=== PATIENT | female | born 1985 | race Two or more races ===

== ENCOUNTER 2016-07-01 07:26 | Outpatient (CLI) | payer OTHER | END 2016-07-01 07:27 | disposition home or self-care (01) | DX: Z36 Encounter for antenatal screening of mother (principal) ==

== ENCOUNTER 2016-07-04 10:40 | Outpatient (CLI) | payer OTHER | END 2016-07-04 10:41 | DX: R82.99 Other abnormal findings in urine (principal) ==

== ENCOUNTER 2016-07-25 10:50 | Outpatient (CLI) | payer OTHER | END 2016-07-25 10:51 | disposition home or self-care (01) | DX: Z36 Encounter for antenatal screening of mother (principal) ==

== ENCOUNTER 2016-08-21 09:58 | Outpatient (CLI) | payer OTHER | END 2016-08-21 09:59 | disposition home or self-care (01) | DX: Z36 Encounter for antenatal screening of mother (principal) ==

== ENCOUNTER 2016-09-19 07:50 | Outpatient (CLI) | payer OTHER | END 2016-09-19 07:51 | disposition home or self-care (01) | DX: Z36 Encounter for antenatal screening of mother (principal) ==

== ENCOUNTER 2016-10-24 11:19 | Outpatient (CLI) | payer OTHER | END 2016-10-24 11:20 | disposition home or self-care (01) | LOC: LAB.R 11:19 | PROVIDERS: ATTEND Obstetrics & Gynecology | DX: Z36 Encounter for antenatal screening of mother (principal) | CPT/HCPCS: 87081 ==

== ENCOUNTER 2016-11-13 10:01 | Outpatient (CLI) | payer OTHER ==
[2016-11-13 10:15] VITALS: BP 126/79
== END 2016-11-13 11:13 | disposition home or self-care (01) ==
LOC: WFO 10:01 → OB 10:02 → WFO 11:13
PROVIDERS: ATTEND Obstetrics & Gynecology
DX: O99.89 Other specified diseases and conditions complicating pregnancy, childbirth and the puerperium (principal); Z3A.38 38 weeks gestation of pregnancy
CPT/HCPCS: 99212

== ENCOUNTER 2016-11-23 10:16 | Outpatient (CLI) | payer OTHER ==
[2016-11-23 11:59] VITALS: BP 116/64
== END 2016-11-23 12:10 | disposition home or self-care (01) ==
LOC: WFO 10:16 → OB 10:17 → WFO 12:10
PROVIDERS: ATTEND Obstetrics & Gynecology
DX: O47.1 False labor at or after 37 completed weeks of gestation (principal); Z3A.40 40 weeks gestation of pregnancy
CPT/HCPCS: 99213

== ENCOUNTER 2016-11-24 04:17 | Inpatient (IN) | payer OTHER ==
[2016-11-24] MEDS ORDERED: SODIUM CHLORIDE FLUSH 0.9% 10 ML SYRINGE IVP PRN (08:28)
[2016-11-24 08:54] LABS: BASOPHILS % (AUTO) 0.5 %; EOSINOPHILS # (AUTO) 0.2 10^3/uL (0.0-0.7); EOSINOPHILS % (AUTO) 1.9 %; HCT - HEMATOCRIT 35.8 % (37.0-47.0); HGB - HEMOGLOBIN 11.8 g/dL (12.0-16.0); LYMPHOCYTES # (AUTO) 1.5 10^3/uL (1.5-3.5); LYMPHOCYTES % (AUTO) 18.2 %; MEAN CORPUSCULAR HEMOGLOBIN 24.8 pg (27.0-31.0); MEAN CORPUSCULAR HGB CONC 32.9 g/dL (32.0-36.0); MEAN CORPUSCULAR VOLUME 75.3 fL (81.0-99.0); MEAN PLATELET VOLUME 8.2 fL (7.9-10.8); MONOCYTES # (AUTO) 0.8 10^3/uL (0.0-1.0); NEUTROPHILS % (AUTO) 70.4 %; RED BLOOD COUNT 4.76 10^6/uL (4.20-5.40); RED CELL DISTRIBUTION WIDTH 19.7 % (12.0-15.0); UNCORRECTED WHITE BLOOD COUNT 8.5 x10^3/uL; WHITE BLOOD COUNT 8.5 x10^3/uL (4.8-10.8)
[2016-11-24] MEDS ORDERED: fentaNYL 100 MCG/2 ML VIAL IVP PRN ×2 (09:56→10:02)
[2016-11-24] MEDS ORDERED: OXYTOCIN/LACTATED RINGERS 250 ML IV SCH (10:00)
--- NOTE | 2016-11-24 10:12 | HISTORY & PHYSICAL EXAMINATION ---
Admit History - Instructions [place]/Slash: -Left hand click circles element as positive or present. -Right hand click slashes element as negative or not present. - : 2 Parity: 1 Premature: 0 Ectopic: 0 : 0 Care: positive: [facility] Risk/History: positive: Labor augmentation (Pt presented yesterday with a Cx which was close and long. sent home contractions have increased in freuency and streingth. Mahad SROM.) Complications This : positive: None Smoking Status: Never smoker - Mother's Labs Mother's Blood Type: positive: A Mother's RH: positive: Positive GBS: positive: Group B Step Negative Rubella Status: positive: Immune (Pt lives 30 min away from hospital. she is scheduled fro an induction friday.) Meds/Allgy - Allergies Allergies/Adverse Reactions: Allergies Allergy/AdvReac Type Severity Reaction Status Date / Time No Known Drug Allergies Allergy Verified 09/11/14 08:17 Physical - Abdominal Exam Vital Signs: Temp Pulse Resp BP Pulse Ox 36.8 C 73 16 123/60 97 11/24/16 07:35 11/24/16 07:35 11/24/16 07:35 11/24/16 07:35 11/24/16 07:35 : 10 min Contraction Intensity: positive: Moderate to strong Uterine Resting Tone: positive: Soft - Monitoring Heart Rate Baseline: 135 Strip Review: positive: Category I - Presentation Presentation: positive: Vertex - Vaginal Exam Membranes: positive: Membranes intact Dilation (in cm): 4 Effacement (%): 70 Station: positive: -1 Cervical Position: positive: Midposition - Speculum Exam Speculum Exam Performed: positive: No - Other Notes Labor Progress Note/Additional Text: Pt is a 31 yo EDC11/22/16 40 2/7 weeks. Lives 30 min away from hospital. History of short second stage. discussed increased of C/S with induction.
[2016-11-24] MEDS: LACTATED RINGERS 1,000 ML IV SCH ×2 (11:02→14:54)
[2016-11-24] MEDS ORDERED: fent/BUPIV 2 MCG/0.125% 250 ML EP ONE (13:09)
[2016-11-24] MEDS ORDERED: diphenhydrAMINE INJ 50 MG/ML VIAL IVP PRN ×2 (13:56→18:42)
[2016-11-24] MEDS ORDERED: METOCLOPRAMIDE 10 MG/2 ML VIAL IVP PRN (13:56)
[2016-11-24] MEDS ORDERED: LACTATED RINGERS 500 ML IV ONE (13:56)
[2016-11-24] MEDS ORDERED: ONDANSETRON 4 MG/2 ML VIAL IVP PRN (13:56)
[2016-11-24] MEDS ORDERED: fent/BUPIV 2 MCG/0.125% 250 ML EP PRN (13:56)
[2016-11-24] MEDS ORDERED: NALBUPHINE 20 MG/ML AMP IVP PRN (13:56)
[2016-11-24] MEDS ORDERED: NALOXONE 0.4 MG/ML VIAL IVP PRN (13:56)
[2016-11-24] MEDS ORDERED: SODIUM CHLORIDE FLUSH 0.9% 10 ML SYRINGE IVP SCH (14:00)
[2016-11-24] MEDS: ePHEDrine 50 MG/ML AMP IVP PRN ×3 (15:18→15:52)
--- NOTE | 2016-11-24 15:46 | PROVIDER PROGRESS NOTE ---
Labor Progress Note - Uterine Monitoring Uterine Monitoring Mode: positive: External toco : 3-3.5 min Contraction Intensity: positive: Moderate to strong Uterine Resting Tone: positive: Soft - Monitoring Monitor Mode: positive: External ultrasound Heart Rate Baseline: 145 Heart Rate Variability: positive: Minimal (0-5 bpm) Accelerations: positive: Absent Decelerations: positive: None Strip Review: positive: Category II (Pt developed left eye lid droop. Decreased wrinkeling of the left eye brow and corner of the mouth. She al;so si having difficulty with maintaing a blood pressure. Suspect high spinal. Stoped epidural, ephedrin 5 mg 4 doses. bolis IV fluids. Contacted Anasthesia. ) - Vaginal Exam Dilation (in cm): 5 Effacement (%): 90% Station: -1 Cervical Position: Midposition
--- NOTE | 2016-11-24 15:53 | CONSULTATION NOTE ---
Referring Provider Consult Date: 11/24/16 (followup for left eye droop ) Chief Complaint - Chief Complaint Chief Complaint: left eye droop, left face decreased sensory and left side of mouth droop History of Present Illness - Admitted From Admitted From:: home - History Obtained From Records Reviewed: yes History obtained from: patient Exam Limitations: patient is in labor at 5 centimeters - History of Present Illness Pain/Problem Location Description: left side of face with loss of some sensation to left cheek Severity: moderate to severe Quality: no pain Timing: onset after receiving an epidural during labor Duration: ongoing Improved with: nothing Worsened by: nothing Associated Symptoms: received an epidural and started to have symptoms HPI Comment/Other: Patient is a 31 year old obese young woman who is in her 40th week . She came to the hospital to deliver her second child. During the course of labor, she received an epidural local. A short time after started to become hypotensive, exhibited left eye drooping, loss of sensation to her left cheek and left corner of the mouth drooping. Patient has no history of neurological or autoimmune disorders. She had her first child approximately 2 years ago. She has had no adverse medical problems during this . She has no pain to the left side of her face. She does have some tingling to the left arm that could be due to the blood pressure cuff. When the cuff is deflated the tingling lessens. She has no nausea or vomiting. She has no chest pain or shortness of breath. Her labor is progressing uneventfully other than these symptoms. Consultation was requested by OB for evaluation of possible [place] Palsy or other neurological illness not related to the . Review of Systems - Constitutional Constitutional: denies: Fatigue, Fever, Chills, Malaise - Eyes Eyes: denies: Pain, Irritation, Blurred vision, Spots in vision, Field loss - Ears, Nose & Throat Ears, Nose & Throat: denies: Ear pain, Hearing loss, Hearing aids - Cardiovascular Cariovascular: denies: Irregular heart rate, Chest pain, Lightheadedness - Respiratory Respiratory: denies: Cough - Musculoskeletal Musculoskeletal: denies: Muscle pain, Limited range of motion, Muscle weakness - Integumentary Integumentary: denies: Rash, Lesions - Neurological Neurological: denies: General weakness, Headache, Memory problems, Seizures, Slurred speech - Psychiatric Psychiatric: denies: Depression, Anxiety - Endocrine Endocrine: denies: Polyuria, Intolerance to heat - Hematologic/Lymphatic Hematologic/Lymphatic: denies: Anemia - All Other Systems All Other Systems: reports: Reviewed and negative History - Past Medical History Cardiovascular: reports: None Respiratory: reports: None Neuro: reports: None Endocrine/Autoimmune: reports: None GI: reports: None KAIAWHINA KOHANGA REO: reports: None : reports: None HEENT: reports: None Psych: reports: None Musculoskeletal: reports: None Derm: reports: None MRSA Hx?: No - Family & Social History Family History: Mother: Cancer, Father: Alive and Well Living arrangement: At home Living Situation: With spouse/s.o. - Substance History Use: Uses substance without health or social issues: NONE Abuse: Recurrent use of substance despite neg consequences: NONE Dependence: Experiences withdrawal or developed tolerances: NONE - POLST Patient has POLST: No POLST Status: Full Code Meds/Allgy - Allergies Allergies/Adverse Reactions: Allergies Allergy/AdvReac Type Severity Reaction Status Date / Time No Known Drug Allergies Allergy Verified 09/11/14 08:17 Exam - Vital Signs Reviewed Vital Signs: Yes - Physical Exam General Appearance: positive: No acute distress, Alert Eyes Bilateral: positive: PERRL, Other (left eye droop) ENT: positive: Pharynx nml, Other (left side of mouth droop) Neck: positive: Thyroid nml, No JVD, Trachea midline Respiratory: positive: No respiratory distress, Breath sounds nml Cardiovascular: positive: Regular rate & rhythm, No murmur, No gallop Peripheral Pulses: positive: 2+ Abdomen: positive: Other () Back: positive: Nml inspection Skin: positive: Color nml, No rash, Warm, Dry Extremities: positive: Full ROM Neurologic/Psychiatric: positive: Oriented x3, Motor nml, Sensation nml (normal to both right and left cheek), Mood/affect nml, Other (left eye droop and left side of mouth droop) Conclusion/Plan - Diagnosis Diagnosis: 1. Acute left eye/left side of mouth droop after epidural possible [place] Palsy. 2. morbid obesity with BMI>40. 3. 40+weeks with imminent delivery - Plan Plan: 1. continue to monitor for neurological changes in the eye and face after delivery. These symptoms may resolve after removal of the epidural during delivery. Steroids maybe needed if patient remains asymptomatic. 2. lab tests such as an ESR , RANDI and CRP might be beneficial to rule out underlying autoimmune disease. 3. would recommend patient to breast feed if possible if symptoms are related to the hormonal changes in and this will lessen the rapid change in hormones after delivery. - Lab Results Lab results reviewed: Yes Fish Bones: 11/24/16 08:40 - EKG Results EKG Interpreted Independently: No
--- NOTE | 2016-11-24 16:04 | PROVIDER PROGRESS NOTE ---
Labor Progress Note - Uterine Monitoring Uterine Monitoring Mode: positive: External toco Contraction Frequency (min/apart): 3-4 min Contraction Intensity: positive: Moderate to strong Uterine Resting Tone: positive: Soft - Monitoring Monitor Mode: positive: External ultrasound Heart Rate Baseline: 145 Heart Rate Variability: positive: Moderate (6-25 bmp) Accelerations: positive: Present, 15x15 Decelerations: positive: None Strip Review: positive: Category I - Vaginal Exam Dilation (in cm): 6 Effacement (%): 100 Station: 0 Cervical Position: Midposition - Labor Progress Note Labor Progress Note/Additional Text: Not numness to nipple line. B/P 141/90. Pit off, Epidural off, Still bolis.
[2016-11-24] MEDS ORDERED: LIDOCAINE 1% 50 ML MDV ONE (16:48)
[2016-11-24] MEDS ORDERED: miSOPROStol 200 MCG TABLET ONE (16:49)
[2016-11-24] MEDS ORDERED: LACTATED RINGERS 1,000 ML IV SCH ×2 (16:51→19:00)
[2016-11-24] MEDS ORDERED: WITCH HAZEL/GLYCERIN 1 EACH MED..PAD TOP PRN (18:42)
[2016-11-24] MEDS ORDERED: OXYTOCIN/LACTATED RINGERS 250 ML IV ONE (18:42)
[2016-11-24] MEDS ORDERED: HYDROCORTISONE 1% CREAM 28 GM TUBE PR PRN (18:42)
--- NOTE | 2016-11-24 18:50 | DELIVERY NOTE ---
Delivery Note - Labor Labor: positive: Spontaneous, Augmented by ARM, Augmented by oxytocin - Infant Delivery Method Infant Delivery Method: positive: Spontaneous vaginal delivery - Presentation Presentation: positive: Vertex, JOÃO - right occiput anterior - Nuchal Cord Nuchal Cord: positive: None - Anesthetic Anesthetic Type: - Amniotic Fluid Description Amniotic Fluid Description: positive: Light meconium - Episiotomy Type Episiotomy Type: positive: None - Laceration Laceration: positive: 1st degree, Perineal - Suture Suture Type: positive: Vicryl Suture Size: positive: 3-0 - Delivery Outcome Delivery Outcome: positive: Livebirth (Live male Apgars 9/9) - [place] : positive: Placed in direct skin contact with mother, Suctioned, Stimulated sex: positive: Male - Cord Cord: positive: 3 vessels - Estimated Blood Loss Estimated Blood Loss (in cc): 250 - Post Delivery Events Post Delivery Events: positive: Other (Following epidural placement pt developed drooping of her left eyelid. Resolved following delivery)
[2016-11-24] MEDS: ACETAMINOPHEN 500 MG TABLET PO SCH (21:48)
[2016-11-24] MEDS: IBUPROFEN 800 MG TABLET PO SCH (21:49)
[2016-11-25] MEDS: HYDROCORTISONE/PRAMOXINE 10 GM PR PRN ×2 (02:20→09:01)
[2016-11-25] MEDS: oxyCODONE 5 MG TABLET PO PRN ×4 (02:20→16:35)
[2016-11-25] MEDS: IBUPROFEN 800 MG TABLET PO SCH ×3 (03:51→16:35)
[2016-11-25 05:52] LABS: BASOPHILS % (AUTO) 0.2 %; EOSINOPHILS # (AUTO) 0.2 10^3/uL (0.0-0.7); EOSINOPHILS % (AUTO) 1.5 %; HCT - HEMATOCRIT 30.9 % (37.0-47.0); HGB - HEMOGLOBIN 10.1 g/dL (12.0-16.0); LYMPHOCYTES # (AUTO) 1.7 10^3/uL (1.5-3.5); LYMPHOCYTES % (AUTO) 15.3 %; MEAN CORPUSCULAR HEMOGLOBIN 24.7 pg (27.0-31.0); MEAN CORPUSCULAR HGB CONC 32.6 g/dL (32.0-36.0); MEAN CORPUSCULAR VOLUME 75.9 fL (81.0-99.0); MEAN PLATELET VOLUME 8.3 fL (7.9-10.8); MONOCYTES % (AUTO) 8.3 %; NEUTROPHILS # (AUTO) 8.6 10^3/uL (1.5-6.6); NEUTROPHILS % (AUTO) 74.7 %; RED BLOOD COUNT 4.07 10^6/uL (4.20-5.40); RED CELL DISTRIBUTION WIDTH 20.2 % (12.0-15.0); UNCORRECTED WHITE BLOOD COUNT 11.5 x10^3/uL; WHITE BLOOD COUNT 11.5 x10^3/uL (4.8-10.8)
[2016-11-25] MEDS: ACETAMINOPHEN 500 MG TABLET PO SCH ×2 (06:05→14:48)
--- NOTE | 2016-11-25 07:42 | PROVIDER PROGRESS NOTE ---
Subjective - Prog Note Date Prog Note Date: 11/25/16 Prog Note Time: 07:42 - Subjective Pt reports feeling: Improved Subjective: Dr VEGA reported that the patient symptoms have resolved and the symptoms were probably from the epidural and not another process. Patient to still be followed per request of Dr Vega if needed. Current Medications - Current Medications Current Medications: Current Medications Generic Name Dose Route Start Last Admin Trade Name Freq PRN Reason Stop Dose Admin Acetaminophen 1,000 mg 11/24/16 19:00 11/25/16 14:48 Tylenol PO 1,000 mg Q8H MAREK Administration Diphenhydramine HCl 25 mg 11/24/16 18:42 11/24/16 23:18 Benadryl Inj IVP 25 mg Q6H PRN Administration ITCHING Ephedrine Sulfate 5 mg 11/24/16 13:56 11/24/16 15:52 Ephedrine IVP 5 mg Q5M PRN Administration For SBP<100;give until SBP>100 Fentanyl 25 - 50 mcg 11/24/16 10:02 11/24/16 12:22 Fentanyl IVP 50 mcg Q2HR PRN Administration PAIN Hydrocortisone/Pramoxine 1 spray 11/24/16 18:42 11/25/16 09:[address] 20 spray QID PRN Administration Hemorrhoids Oxytocin/Lactated Ringer's 250 mls @ 1 mls/hr 11/24/16 10:00 11/24/16 15:00 Pitocin/Lactated Ringers IV 0 milliunit/min TITR MAREK Titration Protocol 1 MILLIUNIT/MIN Lactated Ringer's 1,000 mls @ 100 mls/hr 11/24/16 19:00 11/24/16 20:22 Lr IV 100 mls/hr .Q10H MAREK Administration Ibuprofen 800 mg 11/24/16 19:00 11/25/16 10:28 Motrin PO 800 mg Q6H MAREK Administration Oxycodone HCl 5 mg 11/24/16 18:42 11/25/16 10:32 Roxicodone PO 5 mg Q4HR PRN Administration Severe Pain Simethicone 80 mg 11/24/16 22:00 11/25/16 09:00 Mylicon PO 80 mg TID MAREK Administration Sodium Chloride 10 ml 11/24/16 08:28 11/25/16 06:13 Normal Saline Flush 0.9% IVP 10 ml PRN PRN Administration NEEDED PER PROVIDER ORDERS Sodium Chloride 10 ml 11/24/16 14:00 11/24/16 20:49 Normal Saline Flush 0.9% IVP 10 ml Q8HR MAREK Administration Witch Eugenie/Glycerin 1 each 11/24/16 18:42 11/25/16 02:20 Tucks TOP 1 each QID PRN Administration Hemorrhoids Objective - Vital Signs/Intake & Output Reviewed Vital Signs: Yes Vital Signs: Vital Signs x48h Temp Pulse Resp BP Pulse Ox 11/25/16 03:35 37.0 C 79 18 98/55 L 98 11/24/16 23:45 37.1 C 91 20 119/49 L 97 Intake & Output: Intake & Output 11/22/16 11/23/16 11/24/16 11/25/16 23:59 23:59 23:59 23:59 Intake Total 3864 Output Total 800 450 Balance -800 3414 - Objective General Appearance: positive: No acute distress, Alert Eyes Bilateral: positive: PERRL ENT: positive: ENT inspection nml, Pharynx nml Neck: positive: Nml inspection, Thyroid nml Respiratory: positive: No respiratory distress, Breath sounds nml Cardiovascular: positive: Regular rate & rhythm, No murmur, No gallop Skin: positive: No rash, Warm, Dry Extremities: positive: Full ROM, Nml appearance Neurologic/Psychiatric: positive: Oriented x3, CN's nml (2-12), Motor nml, Sensation nml, Mood/affect nml. negative: Weakness, Facial droop, Slurred/ abnml speech - Lab Results Fish Bones: 11/25/16 05:31 Other Labs: Lab Results x24hrs 11/25/16 11/24/16 Range/Units 05:31 08:40 WBC 11.5 H 8.5 (4.8-10.8) x10^3/uL RBC 4.07 L 4.76 (4.20-5.40) 10^6/uL Hgb 10.1 L 11.8 L (12.0-16.0) g/dL Hct 30.9 L 35.8 L (37.0-47.0) % MCV 75.9 L 75.3 L (81.0-99.0) fL MCH 24.7 L 24.8 L (27.0-31.0) pg MCHC 32.6 32.9 (32.0-36.0) g/dL RDW 20.2 H 19.7 H (12.0-15.0) % Plt Count 181 208 (130-450) 10^3/uL MPV 8.3 8.2 (7.9-10.8) fL Neut # 8.6 H 6.0 (1.5-6.6) 10^3/uL Lymph # 1.7 1.5 (1.5-3.5) 10^3/uL [place] # 1.0 0.8 (0.0-1.0) 10^3/uL Eos # 0.2 0.2 (0.0-0.7) 10^3/uL Baso # 0.0 0.0 (0.0-0.1) 10^3/uL Absolute Nucleated RBC 0.00 0.00 x10^3/uL Nucleated RBCs 0.0 0.0 /100WBC Assessment/Plan - Problem List (1) Other complications of spinal and epidural anesthesia during labor and delivery Impression: patient symptoms resolved once the epidural was stopped and blood pressure improved. patient has no residual to left eye droop or left side cheek with sensory loss. patient back to baseline Thank you for the referral and we will be happy to see patient again should the need arise. Time spent with patient was 40 minutes
[2016-11-25] MEDS: SIMETHICONE CHEW 80 MG TABLET PO SCH ×2 (09:00→15:41)
[2016-11-25 16:38] VITALS: BP 113/64
--- NOTE | 2016-11-25 17:40 | Discharge Plan ---
Discharge Plan Disposition: 01 Home, Self Care Condition: Good Diet: Regular Activity Restrictions: No Restrictions (pelvic rest 6 weeks) Shower Restrictions: No Driving Restrictions: No Weight Bearing: Full Weight No Smoking: If you smoke, Please STOP! Call for help. Follow-up with: Pierce Vega MD [Provider Admit Priv/Credential] -
--- NOTE | 2016-11-25 18:22 | Labor Flowsheet ---
Labor Flowsheet Datetime Report Generated by CPN: 11/25/2016 18:21 Datetime: 11/25/2016 16:35 VITAL SIGNS NBP Sys/Susy/Mean (mmHg): 113 : 64 : 76 Pulse: 75 LaborFlag: Labor Datetime: 11/25/2016 03:34 SpO2 (%): 98 Datetime: 11/24/2016 18:55 Epidural Procedure Other: Cath Removed; Cath Intact Datetime: 11/24/2016 18:20 UTERINE ACTIVITY Monitor Mode: External Frequency (min): q2-3 min Quality: Strong Duration (sec): 60 Pattern: Normal: <= 5 Contractions in 10 Minutes Resting Tone (Palpate): Relaxed ASSESSMENT A Monitor Mode: External US FHR Baseline Rate : unable to determine baseline Variability: Moderate 6-25 bpm Decelerations: Variable Actions for Decelerations: Provider at bedside. PT pushing. Vigourous male born at 1820. Category: Category II Datetime: 11/24/2016 18:12 VAGINAL EXAM Dilatation (cm): 10.0 Effacement (%): 100 Station: 2 Exam by: Dr. Vega Communication Comments: Pt begins pushing Datetime: 11/24/2016 18:00 Respirations: 18 Accelerations: 10X10 Comments: Dr. Vega at bedside Datetime: 11/24/2016 17:43 Monitor Interventions for UA: [place] Adjusted Datetime: 11/24/2016 17:28 Medication Comments: COUNTER CLERK [place] turned epidural back on to 8 Datetime: 11/24/2016 16:30 PATIENT CARE I/O Interventions: [place]o Cath Inserted Datetime: 11/24/2016 16:20 Temperature (C): 36.9 Temperature Route: Oral Datetime: 11/24/2016 15:52 Magnesium/Antihypertensives: Ephedrine IV (mg) @ (Annotations: 5mg) Datetime: 11/24/2016 15:30 COMMUNICATION Communication: Provider at Bedside Datetime: 11/24/2016 15:00 MEDICATIONS Pitocin (milliunits): Discontinued Datetime: 11/24/2016 14:30 Membrane Status: Ruptured Membranes Ruptured Date/Time: 11/24/2016 14:30 Membranes Rupture Method: Artificial Amniotic Fluid Color: Light Meconium Amniotic Fluid Amount: Small Amniotic Fluid Odor: Normal Vaginal Bleeding: None Cervix, Consistency: Soft Cervix, Position: Midposition Presentation 'A': Cephalic Datetime: 11/24/2016 13:40 Epidural Procedure: Completed Datetime: 11/24/2016 13:22 ANESTHESIA Anesthesia Plans: Epidural Anesthesia Interview: E Epidural Positioning: Sitting Datetime: 11/24/2016 12:28 Analgesics/Sedatives: Fentanyl (mcg) @ (Annotations: 50 mcg) Datetime: 11/24/2016 11:30 Pitocin Checklist: At Least 1 Acceleration of 15 bpm x 15 Seconds in 30 Minutes or Adequate Variabi lity; No More than 1 Late Deceleration Occurred in Past 30 Minutes; No More than 2 Variable Decelerat ions > 60 Seconds in Duration and decreasing >60 bpm in 30 minutes; No More than 5 Uterine Contractio ns in 10 Minutes for any 20 Minute Interval; Uterus Palpates Soft between Contractions Datetime: 11/24/2016 11:27 Patient Care Comments: 150 mls Datetime: 11/24/2016 10:00 FHR Baseline Changes: No Baseline Change Datetime: 11/24/2016 09:43 Stage of : Labor
== END 2016-11-25 18:20 | disposition home or self-care (01) | DRG 774 ==
LOC: OB 04:17 → WFO 04:17 → OB 08:20
PROVIDERS: ADMIT Obstetrics & Gynecology; ATTEND Obstetrics & Gynecology
PROC: 10E0XZZ Delivery of Products of Conception, External Approach (ICD-10-PCS; principal; 2016-11-24)
PROC: 0HQ9XZZ Repair Perineum Skin, External Approach (ICD-10-PCS; 2016-11-24)
PROC: 10907ZC Drainage of Amniotic Fluid, Therapeutic from Products of Conception, Via Natural or Artificial Opening (ICD-10-PCS; 2016-11-24)
DX: O70.0 First degree perineal laceration during delivery (principal); O74.8 Other complications of anesthesia during labor and delivery; Z68.41 Body mass index [BMI] 40.0-44.9, adult; O77.0 Labor and delivery complicated by meconium in amniotic fluid; I95.2 Hypotension due to drugs; R29.810 Facial weakness; O99.214 Obesity complicating childbirth; Z3A.40 40 weeks gestation of pregnancy; Z37.0 Single live birth
CPT/HCPCS: 36415; 85025; 87491; 87591; 99213

== ENCOUNTER 2016-11-27 07:41 | Observation (INO) | payer OTHER ==
[2016-11-27] MEDS ORDERED: SODIUM CHLORIDE 0.9% 1,000 ML IV ONE (08:42)
[2016-11-27] MEDS ORDERED: oxyCOD/ACETAMIN 5 MG/325 MG TABLET PO STA (08:42)
--- NOTE | 2016-11-27 09:01 | ED Physician Documentation ---
History of Present Illness - Stated complaint Stated Complaint: BACK PAIN - Chief complaint Chief Complaint: Back Pain - Additonal information Additional information: hx from pt 31 f 3 days PP with an epidural was OK until dc yesterday then developed severe back pain near site of epidural, some numbness to the right inguinal region, diff moving her legs [place] hip flexion though diff to stermine if this is 2/2 pain or true weakness and a few episodes of urinary incont also have severe upper abd cramps and pelvic cramping no fever no NVD no urinary sx breast feeing called L&D and sent to the ED for wup HTN on arrival - states no pre-eclampsia prior to delivery Review of Systems Constitutional: denies: Fever, Chills Cardiac: denies: Chest pain / pressure Respiratory: denies: Dyspnea GI: reports: Abdominal Pain. denies: Nausea, Vomiting, Diarrhea : reports: Vaginal bleeding (PP). denies: Dysuria, Now EGA Endocrine: denies: Easy bruising / bleeding Immunocompromised: denies: Immunocompromised PD PAST MEDICAL HISTORY - Past Medical History Past Medical History: No Cardiovascular: None Respiratory: None Neuro: None Endocrine/Autoimmune: None GI: None HARNESS INSPECTOR: None : None HEENT: None Psych: None Musculoskeletal: None Derm: None - Past Surgical History Past Surgical History: No - Present Medications Home Medications: Ambulatory Orders Medication Instructions Recorded Confirmed Ibuprofen [Ibuprofen] 800 mg PO TID 11/27/16 11/27/16 oxyCODONE/ACET 5/325 Prepack 4 1 tab PO Q4H PRN 11/27/16 11/27/16 [PERCOCET 5 MG/325 MG Prepack 4] - Allergies Allergies/Adverse Reactions: Allergies Allergy/AdvReac Type Severity Reaction Status Date / Time No Known Drug Allergies Allergy Verified 09/11/14 08:17 - Social History Does the pt smoke?: No Smoking Status: Never smoker - POLST Patient has POLST: No POLST Status: Full Code PD ED PE NORMAL - Vitals Vital signs reviewed: Yes (HTN) - General General: Alert and oriented X 3 - Neck Neck: Supple, no meningeal sign - Cardiac Cardiac: RRR - Respiratory Respiratory: No respiratory distress, Clear bilaterally - Abdomen Abdomen: Soft, Other (TTP upper abd > lower, more TTP RUQ but neg murphys, mild PP distension) - Back Back: No CVA TTP, Other (2 puncture sites to upper lumbar region s erythema or swelling or wramth, very TTP) - Derm Derm: Normal color - Neuro Neuro: Other (dec sensation to R inguinal region, no labia buttock numbness, nl sensation to legs, dec hip flexion jina but partly due to pain, knee ext foot dorsi plantar great toe ext all 5/5, no clonus, neg SLR) Results - Vitals Vitals: Vital Signs - 24 hr 11/27/16 11/27/16 11/27/16 07:45 10:15 10:30 Temperature 36.9 C 36.8 C Heart Rate 90 81 Respiratory 21 18 Rate Blood Pressure 147/80 H 116/58 L O2 Saturation 97 95 11/27/16 11/27/16 13:17 14:42 Temperature Heart Rate 76 75 Respiratory 18 12 Rate Blood Pressure 131/56 H 120/64 O2 Saturation 96 96 Oxygen O2 Source Room air - Labs Labs: Laboratory Tests 11/27/16 11/27/16 11/27/16 10:20 10:20 10:29 WBC 8.2 RBC 4.25 Hgb 10.6 L Hct 31.9 L MCV 75.0 L MCH 24.9 L MCHC 33.2 RDW 19.9 H Plt Count 206 MPV 7.9 Neut # 6.0 Lymph # 1.4 L [place] # 0.6 Eos # 0.1 Baso # 0.0 Absolute Nucleated RBC 0.00 Nucleated RBCs 0.0 Sodium 138 Potassium 3.5 Chloride 105 Carbon Dioxide 24 Anion Gap 9.0 BUN 6 Creatinine 0.4 Estimated GFR (MDRD) 185 Glucose 88 Calcium 8.3 L Total Bilirubin 0.4 AST 40 ALT 28 Alkaline Phosphatase 108 Total Protein 5.8 L Albumin 2.3 L Globulin 3.5 Albumin/Globulin Ratio 0.7 L Lipase 16 L Urine Color RED/BLOODY Urine Clarity BLOODY Urine pH 8.0 H Ur Specific [place] 1.015 Urine Protein 30 H Urine Glucose (UA) NEGATIVE Urine Ketones NEGATIVE Urine Occult Blood LARGE H Urine Nitrite NEGATIVE Urine Bilirubin NEGATIVE Urine Urobilinogen 0.2 (NORMAL) Ur Leukocyte Esterase TRACE H Urine RBC TNTC H Urine WBC 6-10 H Ur Squamous Epith Cells MOD Squamous H Urine Bacteria Many H Ur Microscopic Review INDICATED Urine Culture Comments NOT INDICATED 11/27/16 13:56 WBC RBC Hgb Hct MCV MCH MCHC RDW Plt Count MPV Neut # Lymph # [place] # Eos # Baso # Absolute Nucleated RBC Nucleated RBCs Sodium Potassium Chloride Carbon Dioxide Anion Gap BUN Creatinine Estimated GFR (MDRD) Glucose Calcium Total Bilirubin AST ALT Alkaline Phosphatase Total Protein Albumin Globulin Albumin/Globulin Ratio Lipase Urine Color YELLOW Urine Clarity HAZY Urine pH 6.5 Ur Specific [place] 1.015 Urine Protein NEGATIVE Urine Glucose (UA) NEGATIVE Urine Ketones NEGATIVE Urine Occult Blood LARGE H Urine Nitrite NEGATIVE Urine Bilirubin NEGATIVE Urine Urobilinogen 0.2 (NORMAL) Ur Leukocyte Esterase TRACE H Urine RBC TNTC H Urine WBC 0-3 Ur Squamous Epith Cells MOD Squamous H Urine Bacteria Moderate H Ur Microscopic Review INDICATED Urine Culture Comments NOT INDICATED - Rads (name of study) abd sono Radiology: See rad report (mild hepatomegalt with parenchymal pattern c/w benign fatty infiltration, nl GB, borderline spleen size) pelvic sono Radiology: See rad report (enlarged uterus c/w pp states, no retained products visualized, R ovary non vis, L ovary nl) PD MEDICAL DECISION MAKING - ED course ED course: BP improved when pain controlled, mild proteinurea but not a clean catch and + WBC RBC epi and bacteria - doubt pre-eclampsia LFTs WBC and RUQ sono neg - doubt biliary dz pelvic sono neg for retained POC UA so contaminated cannot determine if pt has a UTI - will recheck - still many epis now no WBC doubt UTI needs MRI to eval for epidural abscess or hematoma given severe pain, R inguinal numbness, jina hip flexion weakness and several episodes of urinary incont - unfortunately [facility] cannot provide this service for pt today as MRI is fully booked all day - options are CT with contrast which is a large amt of radiation and contrast would preclude breast feeding for a few days and is not as accurate a study, transfer to another facility for imaging ([facility]), or wait for tomorrow d/w pt anesthesia and OB and plan is to keep pt at [facility] for serial neuro checks until MRI can be performed Departure - Departure Disposition: ED Place in Observation Clinical Impression: Other complications of spinal and epidural anesthesia during labor and delivery Condition: Good Discharge Date/Time: 11/27/16 16:00
[2016-11-27] MEDS ORDERED: oxyCOD/ACETAMIN 5 MG/325 MG TABLET PO ONE (10:10)
[2016-11-27 10:27] LABS: BASOPHILS % (AUTO) 0.4 %; EOSINOPHILS # (AUTO) 0.1 10^3/uL (0.0-0.7); EOSINOPHILS % (AUTO) 1.3 %; HCT - HEMATOCRIT 31.9 % (37.0-47.0); HGB - HEMOGLOBIN 10.6 g/dL (12.0-16.0); LYMPHOCYTES # (AUTO) 1.4 10^3/uL (1.5-3.5); MEAN CORPUSCULAR HEMOGLOBIN 24.9 pg (27.0-31.0); MEAN CORPUSCULAR HGB CONC 33.2 g/dL (32.0-36.0); MEAN PLATELET VOLUME 7.9 fL (7.9-10.8); MONOCYTES # (AUTO) 0.6 10^3/uL (0.0-1.0); MONOCYTES % (AUTO) 7.6 %; NEUTROPHILS % (AUTO) 73.7 %; RED BLOOD COUNT 4.25 10^6/uL (4.20-5.40); RED CELL DISTRIBUTION WIDTH 19.9 % (12.0-15.0); UNCORRECTED WHITE BLOOD COUNT 8.2 x10^3/uL; WHITE BLOOD COUNT 8.2 x10^3/uL (4.8-10.8)
[2016-11-27 10:38] LABS: BILIRUBIN,URINE NEGATIVE (NEGATIVE)
[2016-11-27 10:40] LABS: ALBUMIN/GLOBULIN RATIO 0.7 (1.0-2.2); BILIRUBIN,TOTAL 0.4 mg/dL (0.2-1.0); CALCIUM 8.3 mg/dL (8.5-10.3); CREATININE 0.4 mg/dL (0.4-1.0); POTASSIUM 3.5 mmol/L (3.5-5.0); TOTAL PROTEIN 5.8 g/dL (6.7-8.2)
[2016-11-27 10:55] LABS: UA w/ MICROSCOPIC CHARGE YES; UR CULTURE IF IND NOT INDICATED
--- NOTE | 2016-11-27 11:53 | Ultrasound Report ---
ABDOMINAL ULTRASOUND:: 11/27/2016 CLINICAL HISTORY: A 31-year-old female who is times 3 days and right upper quadrant pain. TECHNIQUE: Real-time scanning was performed with automotive leasing sales representative static images obtained. FINDINGS: The liver is mildly enlarged with a parenchymal pattern suggestive of benign fatty infiltr ation. The liver length measures 23.5 cm. Normal hepatopetal flow is seen in the portal vein. The gallbladder is mildly distended without wall thickening or calculi. This distention most likely i s a normal variation related to a relative n.p.o. status. The wall thickness measures 2 mm. This jasmeet urement is normal. The common bile duct has a normal diameter of 3.6 mm. The pancreas shows no significant abnormality. The pancreatic tail is not optimally visualized. The kidneys demonstrate the right kidney to measure 13.1 cm. The left kidney measures 12 cm. No pyelo caliceal system distention or masses are seen. The spleen is borderline in size with a length of 13.4 cm. The abdominal aorta shows no evidence of aneurysm and has a maximum diameter of 2.1 cm. The inferior vena cava is seen in its subhepatic portion. IMPRESSION: 1. THE LIVER APPEARS MILDLY ENLARGED WITH A PARENCHYMAL PATTERN SUGGESTIVE OF BENIGN FATTY INFILTRATI ON OF THE LIVER. 2. BORDERLINE SIZE OF THE SPLEEN IS NOTED WITH A NORMAL PARENCHYMAL PATTERN. JOB #: [id number] EXT JOB #:[id number]
--- NOTE | 2016-11-27 12:00 | Ultrasound Report ---
PELVIC ULTRASOUND NON OB: 11/27/2016 CLINICAL HISTORY: Only a transabdominal scan was done. The patient is times 3 days and has pelvic pain. TECHNIQUE: Transabdominal pelvic ultrasound performed for global evaluation. Real-time scanning perfo rmed and static images obtained. FINDINGS: The uterus is enlarged, most likely a result of its state. It measures 20.7 cm by 11.9 cm by 12.2 cm for a volume of 1571.7 cubic centimeters. Central endometrial complex shows no significant abnormality. Central endometrial complex measures 1 cm. There is no obvious sign of retai sindhu products of conception on this transabdominal scan. No enhanced vascularity on the color flow rachael ges is seen in the endometrial echo complex. If retained products of conception is of strong clinical concern, then a transvaginal scan could be obtained. Transvaginal scan is more accurate than transab dominal scan for evaluation of retained products of conception. The right ovary is not seen. The left ovary measures 2.6 cm by 1.8 cm 1.9 cm for a volume of 4.7 cubi c centimeters. The left ovary shows normal vascular flow. IMPRESSION: 1. ENLARGED UTERUS IS NOTED RELATED TO PATIENT'S STATE. 2. CENTRAL ENDOMETRIAL COMPLEX SHOWS NO SIGNIFICANT ABNORMALITY ON TRANSABDOMINAL SCAN. IF THERE IS A STRONG CLINICAL CONCERN IN REGARDS TO RETAINED PRODUCTS OF CONCEPTION, THEN TRANSVAGINAL EXAMINATION IS RECOMMENDED. 3. THE RIGHT OVARY WAS NOT SEEN. 4. THE LEFT OVARY IS NORMAL. JOB #: [id number] EXT JOB #:[id number]
[2016-11-27 14:04] LABS: BILIRUBIN,URINE NEGATIVE (NEGATIVE); PH,URINE 6.5 PH (5.0-7.5)
[2016-11-27 14:05] LABS: UA w/ MICROSCOPIC CHARGE YES
[2016-11-27 14:29] LABS: UR CULTURE IF IND NOT INDICATED; WBC,URINE 0-3 /HPF (0-5)
[2016-11-27] MEDS ORDERED: ACETAMINOPHEN 1,000 MG/100 ML 100 ML IV STA (14:43)
[2016-11-27] MEDS ORDERED: ACETAMINOPHEN 1,000 MG/100 ML 100 ML IV ONE (15:07)
[2016-11-27] MEDS ORDERED: ACETAMINOPHEN 325 MG TABLET PO PRN (15:12)
[2016-11-27] MEDS ORDERED: SODIUM CHLORIDE FLUSH 0.9% 10 ML SYRINGE IVP PRN (15:12)
[2016-11-27] MEDS ORDERED: LACTATED RINGERS 1,000 ML IV SCH (16:00)
[2016-11-27] MEDS: HYDROcod/ACETAM 5/325 MG TABLET PO PRN ×2 (16:56→21:10)
--- NOTE | 2016-11-27 18:13 | MRI Report ---
EXAM: MRI LUMBAR SPINE WITHOUT CONTRAST EXAM DATE: 11/27/2016 05:56 PM. CLINICAL HISTORY: Post post epidural back pain. COMPARISON: None. TECHNIQUE: Multiplanar, multisequence T1-weighted and fluid-sensitive sequences of the lumbar spine f rom T12 to S1 without contrast. Other: None. FINDINGS: Spinal Cord: The conus terminates at mid-L1. No signal abnormality in the visualized spinal cord. The re is slight thickening of the left ligamentum flavum at L4-L5 which may represent epidural injection site. There is no mass on the underlying thecal sac. Alignment: Normal. No scoliosis or spondylolisthesis. Bone Marrow: Five [id number] lumbar vertebral bodies are assumed. No gross fractures or bone les ions. No bone marrow edema. No significant endplate degenerative changes. Disk height. Preserved. No disk desiccation. Disk Levels/Facets: T12-L1: Unremarkable. L1-L2: Unremarkable. L2-L3: Unremarkable. L3-L4: Unremarkable. L4-L5: Unremarkable. L5-S1: Unremarkable. Musculature: No definite paraspinal musculature edema or fatty atrophy seen. There is moderate edema seen within the 16th tissues of the low back. Other: The visualized pelvic cavity is unremarkable. IMPRESSION: 1. No definite epidural hematoma or epidural fluid collection seen. 2. There is slight asymmetric thickening of the left ligamentum flavum at L4-L5 that may represent ep idural injection site. There is no mass effect on the underlying thecal sac. 3. No definite spinal canal stenosis or neural foraminal narrowing seen. Comment: The following findings are so common in adults without low back pain that while we report th eir presence, they must be interpreted with caution and in the context of the clinical situation. (Re edgar Barton et al, Spine 2001) Prevalence of findings in patients without low back pain: Disk degeneration (any evidence): 92% Disk desiccation/T2 signal loss: 83% Disk height loss: 56% Disk bulge: 64% Disk protrusion: 32% Annular tear/high intensity zone: 38% [facility] Referring Provider Line: [phone] SITE ID: [id number]
[2016-11-27 20:21] VITALS: BP 124/71
--- NOTE | 2016-11-27 21:17 | Discharge Plan ---
Discharge Plan Disposition: 01 Home, Self Care Condition: Good Diet: Regular Activity Restrictions: No Restrictions Shower Restrictions: No Driving Restrictions: No Weight Bearing: Full Weight No Smoking: If you smoke, Please STOP! Call for help. Follow-up with: Pierce Vega MD [Provider Admit Priv/Credential] -
[2016-11-27] MEDS ORDERED: SODIUM CHLORIDE FLUSH 0.9% 10 ML SYRINGE IVP SCH (22:00)
--- NOTE | 2016-11-28 05:29 | HISTORY & PHYSICAL EXAMINATION ---
DATE OF ADMISSION: 11/27/2016 DIAGNOSES 1. Unremitting back pain associated with bilateral leg weakness and numbness in the right groin. 2. day #3. 3. Status post vaginal delivery. 4. Status post high epidural HISTORY: The patient is a 31-year-old 2, para 2-0-0-2, who delivered 3 days ago. She received an epidural that became a high epidural and was discontinued, but did not cause further complications. At 7 p.m. last night , she noted severe lumbar pain at the site of the epidural. With time, she noted numbness in the right inguinal area and difficulty with hip flexion. She notes bilateral lower extremity weakness, left greater than right. She has difficulty walking due to this weakness. In addition, she has developed urinary incontinence without dysuria, hematuria, or urgency. In terms of course, she is without difficulty. Her lochia is mild non-foul rubra. The patient denies chronic disease history, including cardiovascular history. She denies psychiatric history or neurologic problems. PAST SURGICAL HISTORY: None. ALLERGIES: NO KNOWN DRUG ALLERGIES. MEDICATIONS: Currently on Percocet, which controls pain. REVIEW OF SYSTEMS CONSTITUTIONAL: No fevers, chills, syncopal episodes, or night sweats. CARDIAC: No chest pain, palpitations, or skipped beats. RESPIRATORY: No dyspnea, wheeze. GASTROINTESTINAL: Inguinal pain as noted above. No nausea, vomiting, or diarrhea. GENITOURINARY: Negative. ENDOCRINE: Negative NEURO: No chronic GLASGOW, No prior back problems, motor or sensory disturbance HEMATOLOGIC/IMMUNOLOGIC: She tends to bruise easily. PHYSICAL EXAMINATION GENERAL: Patient lying comfortably in bed, recumbent. No apparent distress. Talkative, alert, oriented. VITAL SIGNS: Temp 36.9, pulse 90, respiratory rate 21, blood pressure 147/80, saturation 97. HEENT: EOMI. Nonicteric sclerae. NECK: Supple. No thyromegaly. CARDIAC: Regular, no murmur, no gallop. RESPIRATORY: Clear to auscultation all lobes. ABDOMEN: Soft. No tenderness noted. Uterus present approximately 17 to 16 week size. Firm, not tender. GENITOURINARY: Mild non-foul rubra. Internal exam not accomplished. BACK: Puncture wound healing, with no lumps, hematoma, or signs of infection. NEUROLOGIC: To light touch, patient reports decreased sensation in inguinal region. Normal sensation buttocks and genital areas. Normal sensation to light touch in the legs. Possibly decreased hip flexure strength. Patellar reflexes 2 + and equal, no clonus. DERMATOLOGIC: Brief survey finds no rash or lesions. LABORATORY STUDIES: White count 8.2, hemoglobin 11.6, platelets 206. Urinalysis contaminated with lochial blood, but essentially negative. Comprehensive metabolic panel: Sodium 138, potassium 3.5, creatinine 0.4, glucose 88. Total bilirubin 0.4, AST 40, ALT 28, alkaline phosphatase 108, total protein 5.8, albumin 2.3, lipase 16. ASSESSMENT: Patient reports increasing lumbar pain at the site of epidural site with concomitant neurologic complaints and subtle changes on physical examination. This combination prompts caution and MRI would be prudent. Current exam is not alarming, but should be followed over time. Until MRI can be obtained to clear the patient, she will be in an observation status. PLAN 1. Observation with periodic neurologic checks. 2. Anesthesia informed and will consult. 3. MRI as soon as possible. 4. Continue Percocet for pain control and discard milk. JOB #: [id number] EXT JOB #:[id number] DANIEL
[2016-11-28] MEDS ORDERED: POLYETHYLENE GLYCOL 3350 17 GM PACKET PO SCH (09:00)
== END 2016-11-27 22:00 | disposition home or self-care (01) ==
LOC: ED 07:41 → MS 15:12
PROVIDERS: ADMIT Obstetrics & Gynecology; ATTEND Obstetrics & Gynecology
DX: O89.5 Other complications of spinal and epidural anesthesia during the puerperium (principal); M54.5 Low back pain; R53.1 Weakness; R20.0 Anesthesia of skin; R32 Unspecified urinary incontinence
CPT/HCPCS: 36415; 72148; 76700; 76856; 80053; 81001; 83690; 85025; 96361; 96374; 99284; A9270; G0378; J0131; J7120; 81003; 87086

== ENCOUNTER 2017-04-15 22:08 | Emergency (ER) | payer OTHER ==
[2017-04-15] MEDS ORDERED: METOCLOPRAMIDE 10 MG/2 ML VIAL IVP STA (22:19)
[2017-04-15] MEDS ORDERED: SODIUM CHLORIDE 0.9% 1,000 ML IV ONE (22:19)
[2017-04-15] MEDS ORDERED: diphenhydrAMINE INJ 50 MG/ML VIAL IVP STA (22:19)
[2017-04-15] MEDS ORDERED: ACETAMINOPHEN 500 MG TABLET PO STA (22:19)
[2017-04-15] MEDS ORDERED: diphenhydrAMINE INJ 50 MG/ML VIAL ONE (22:29)
[2017-04-15] MEDS ORDERED: METOCLOPRAMIDE 10 MG/2 ML VIAL ONE (22:29)
[2017-04-15] MEDS ORDERED: ACETAMINOPHEN 500 MG TABLET PO ONE (22:29)
[2017-04-15 22:42] LABS: BILIRUBIN,URINE NEGATIVE (NEGATIVE)
[2017-04-15 22:43] LABS: UA CHARGE (STRIP ONLY) YES; UR CULTURE IF IND NOT INDICATED
[2017-04-15 22:44] LABS: HCG UR QUAL NEGATIVE
[2017-04-15] MEDS ORDERED: KETOROLAC 60 MG/2 ML VIAL IVP STA (22:49)
[2017-04-15] MEDS ORDERED: KETOROLAC 15 MG/ML VIAL ONE (22:57)
--- NOTE | 2017-04-15 23:08 | ED Physician Documentation ---
PD HPI HEADACHE - Stated complaint Stated Complaint: HEADACHE - Chief complaint Chief Complaint: Neuro - History obtained from History obtained from: Patient - History of Present Illness Timing - onset: Today Timing - onset during: Rest Timing - details: Gradual onset, Still present Location: Front, Global Quality: Aching Associated symptoms: Nausea. No: Fever, Stiff neck, Vomiting, Weakness, Numbness, Syncope, Vision changes Improved by: Rest, Dark room Similar symptoms before: Has not had sx before Recently seen: Not recently seen - Additional information Additional information: Patient is a 32 year old female with no significant past medical history who is presenting to the emergency department for headache. patient states that the headache started slowly at work and got progressively worse. Patient states that it started in the front and has become progressively worse. Review of Systems Constitutional: denies: Fever, Chills, Myalgias Eyes: reports: Photophobia. denies: Decreased vision Ears: denies: Ear pain, Drainage/discharge Nose: reports: Congestion, Sinus pressure / pain Throat: denies: Sore throat Respiratory: denies: Dyspnea, Cough GI: reports: Nausea. denies: Vomiting : reports: Reviewed and negative Skin: reports: Reviewed and negative Musculoskeletal: denies: Neck pain, Back pain, Extremity pain Neurologic: reports: Headache. denies: Focal weakness, Numbness, Near syncope, Syncope, Seizure, Altered mental status, Head injury, LOC Psychiatric: reports: Reviewed and negative Endocrine: reports: Reviewed and negative PD PAST MEDICAL HISTORY - Past Medical History Past Medical History: No Cardiovascular: None Respiratory: None Neuro: None Endocrine/Autoimmune: None GI: None DISTILLERY SUPERVISOR: None : None HEENT: None Psych: None Musculoskeletal: None Derm: None - Past Surgical History Past Surgical History: No - Present Medications Home Medications: Ambulatory Orders Medication Instructions Recorded Confirmed No Known Home Medications [No 04/15/17 04/15/17 Known Home Medications] - Allergies Allergies/Adverse Reactions: Allergies Allergy/AdvReac Type Severity Reaction Status Date / Time No Known Drug Allergies Allergy Verified 04/15/17 22:35 - Social History Does the pt smoke?: No Smoking Status: Never smoker Does the pt drink ETOH?: No Does the pt have substance abuse?: No - Immunizations Immunizations are current?: Yes - POLST Patient has POLST: No POLST Status: Full Code PD ED PE NORMAL - General General: Well developed/nourished - HEENT HEENT: Atraumatic, PERRL, Moist mucous membranes, Pharynx benign - Neck Neck: Supple, no meningeal sign, No JVD - Cardiac Cardiac: RRR, No murmur - Respiratory Respiratory: No respiratory distress - Abdomen Abdomen: Non distended - Derm Derm: Normal color, Warm and dry, No rash - Extremities Extremities: No deformity, No edema - Neuro Neuro: Alert and oriented X 3, national coverage specialist 2-12 intact, No motor deficit, No sensory deficit, Normal speech Eye Opening: Spontaneous Motor: Obeys Commands Verbal: Oriented GCS Score: 15 - Psych Psych: Normal mood PD ED PE EXPANDED - General General: Alert, In Pain Results - Vitals Vitals: Vital Signs - 24 hr 04/15/17 22:13 Temperature 36.2 C L Heart Rate 86 Respiratory 16 Rate Blood Pressure 131/81 H O2 Saturation 99 Oxygen O2 Source Room air - Labs Labs: Laboratory Tests 04/15/17 22:35 Urine Color YELLOW Urine Clarity CLEAR Urine pH 6.0 Ur Specific [place] >=1.030 H Urine Protein NEGATIVE Urine Glucose (UA) NEGATIVE Urine Ketones TRACE Urine Occult Blood NEGATIVE Urine Nitrite NEGATIVE Urine Bilirubin NEGATIVE Urine Urobilinogen 0.2 (NORMAL) Ur Leukocyte Esterase NEGATIVE Ur Microscopic Review NOT INDICATED Urine Culture Comments NOT INDICATED Urine HCG, Qual NEGATIVE PD MEDICAL DECISION MAKING - ED course Complexity details: reviewed old records, reviewed results, re-evaluated patient , considered differential, d/w patient, d/w family ED course: Patient was seen and examined at bedside. IV access was gained and labs were drawn. Urine was collected. Patient was treated with IV fluids, bendaryl, reglan. Once urine results revealed that the patient was not she was treated with toradol as well. patient had a good relief of her symptoms. She reported only a little sinus pressure. while serious etiologies of the headache were considered. SAH, or menigitis were very unlikely. Patient required no further work up at this time and was stable for discharge with outpatient follow up. Departure - Departure Disposition: 01 Home, Self Care Clinical Impression: Headache Condition: Good Instructions: ED Cephalgia Unspecified Follow-Up: primary,care provider [Other] Comments: It is difficult to say what caused your headache exactly. there are over 100 different types of headaches. Some of the most common culprits are not enough sleep and dehydration. It is important that you get plenty of sleep and stay well hydrated. If your symptoms become more frequent it might be beneficial to keep a headache journal, tracking changes in diet or activities that led to the headaches. You can take motrin or tylenol as needed for pain and should follow up with your primary care physician. You may return to the emergency department at any time for new, worsening or uncontrollable symptoms.
[2017-04-15 23:15] VITALS: BP 113/66
== END 2017-04-15 23:19 | disposition home or self-care (01) ==
LOC: ED 22:08
DX: R51 Headache (principal); R11.0 Nausea; R09.81 Nasal congestion
CPT/HCPCS: 81003; 81025; 96361; 96374; 96375; 99283; A9270; 81001; 87086